=== PATIENT | female | born 2000 | race Two or more races ===

== ENCOUNTER 2024-03-11 17:28 | Observation (INO) | payer MEDICAID, SELFPAY ==
[2024-03-11 17:37] VITALS: BMI 33.9
[2024-03-11 17:51] VITALS: BP 109/50; PULSE 80
--- NOTE | 2024-03-11 21:46 | XR_ITS ---
Examination: Biophysical profile, ultrasound Date and time of exam: March 11, 2024 2156 hrs. Indications: Pelvic pain and pressure today, history demise x2 Technique: Multiple transabdominal sonographic images of the pelvis abdomen obtained. Attention is directed to the breathing movement, gross body movement, amniotic fluid volume and tone. Findings: Adequate fluid index 8.9 cm Total biophysical profile is 8 of 8. breathing movement is 2. Gross body movement is 2. tone is 2. Qualitative amniotic fluid volume is 2 Impression: Biophysical profile is 8 of 8.
== END 2024-03-11 23:10 | disposition home or self-care (01) ==
PROVIDERS: Admitting Provider Student in an Organized Health Care Education/Training Program; PCP Family Medicine; Visit Provider Student in an Organized Health Care Education/Training Program
DX: O26.893 Other specified pregnancy related conditions, third trimester (principal); Z3A.39 39 weeks gestation of pregnancy; R10.30 Lower abdominal pain, unspecified
CPT/HCPCS: 59025; 59899; 76819

== ENCOUNTER 2024-03-14 19:10 | Inpatient (IN) | payer MEDICAID, SELFPAY ==
--- NOTE | 2024-03-14 18:26 | PC.NURSE ---
CALL PLACED TO [facility] FOR PANEL, PER [facility] THEY DO NOT HAVE A PANEL BUT WILL FAX WHAT LABS THEY DO HAVE FOR THE PT.
--- NOTE | 2024-03-14 19:35 | ESHP_ITS ---
Documentation for date of: 03/14/24 OB Labor/Induct. HPI History of Present Illness Chief complaint: IOL : 5 Para: 3 Term pregnancies: 1 pregnancies: 3 Living children: 2 History of Abortions: Spontaneous and Elective: 0 ALEYDA: 03/16/24 Gestational Age (weeks): 39 Gestational Age (days): 5 Indication for induction: other History of present illness: 23-year-old -1-0-3 at 39 weeks 5 days, ALEYDA 03/16/2024 presents for elective induction of labor due to maternal discomfort. Patient received care at [facility]. Current significant for late transfer of care in the late second trimester from [place]. Patient has been having occasional contractions and as per her last exam she was noted to be 3 cm dilated in the office. Patient has a history of adverse outcomes with 3 deliveries at 36 weeks and 2 deaths within hours to days after all of which was in [place]. Review of Systems Review of Systems Systems Reviewed: All systems reviewed, normal except as documented Meds Home Medications and Allergies Home Medications ?Medication ?Instructions ?Recorded ?Confirmed ?Type vit no.95-ferrous 1 tab PO QDAY 03/11/24 03/11/24 History fumarate 28 mg-folic acid 800 mcg tablet () Allergies Allergy/AdvReac Type Severity Reaction Status Date / Time No Known Allergies Allergy Verified 03/11/24 17:46 OB Exam Constitutional Constitutional: no acute distress Routine HEENT Exam Head: Present normocephalic and atraumatic Eye: Present EOMI and PERRL ENT: Present mucous membranes moist Routine Neck Exam Neck: Present supple and trachea midline Routine Cardiovascular Exam Cardiovascular: Present RRR Routine Abdominal Exam Abdominal: Present soft and normoactive bowel sounds Detailed Labor and Delivery Exam Dilation (cm): 3 Effacement (%): 100 Cervix position: mid Baseline heart rate: 140 monitor accelerations: 15x15 monitor decelerations: None Routine Extremities Exam Extremities: Present full ROM Routine Skin Exam Skin: Present intact, dry and warm Routine Neurological Exam Neurological: Present alert, oriented X3 and CN II-XII intact Routine Psychiatric Exam Psychiatric: Present normal affect and normal thought process OB Assessment & Plan Assessment and Plan (1) Encounter for induction of labor: Status: Acute Assessment and plan: Admit to Inpatient to labor and Delivery GBS: neg Vital Signs per protocol External monitor/Tocometry Activity: Bedrest w/bathroom privileges Ambulate in Latent Labor with intact membrane Intake and Urine Output Monitoring Urine catheter as needed Diet: As tolerated in latent labor Ice Chips in active labor Intravenous Fluids: Lactated Ringers +/- 5% Dextrose at 125 cc/hour Labs Complete Blood Count Blood Type and Antibody Screen (Indirect Jaden) RPR COVID-19 RNA Plan: Misoprostol for cervical ripening until favorable, proceed to oxytocin once ripening is achieved Estimated weight 7-1/2 pounds Anticipate vaginal delivery. Pain management as per protocol, epidural if desired. (2) with poor obstetric history: Status: Acute
[2024-03-14 20:30] VITALS: TEMP 36.8
[2024-03-14 20:58] LABS: Basophils # (Auto) 0.1 Thou/mm3 (0.0-0.2); Basophils % (Auto) 1 % (0-2.5); Eosinophils # (Auto) 0.3 Thou/mm3 (0.0-0.5); Eosinophils % (Auto) 2 % (0-10); Hematocrit 35.8 % (36.0-46.0); Hemoglobin 11.8 g/dL (12.0-16.0); Immature Granulocytes % (Auto) 0 % (0-0); Immature Granulocytes Auto 0.05 Thou/mm3 (0.00-0.00); Lymphocytes # (Auto) 2.6 Thou/mm3 (1.0-4.8); Lymphocytes % (Auto) 23 % (10-50); Mean Corpuscular Hemoglobin 24.7 pg (25.0-35.0); Mean Corpuscular Volume 75 fL (80-100); Monocytes # (Auto) 0.9 Thou/mm3 (0.0-0.8); Monocytes % (Auto) 8 % (0-12); Neutrophils # (Auto) 7.8 Thou/mm3 (1.8-7.7); Neutrophils % (Auto) 67 % (37-80); Nucleated Red Blood Cell % 0 /100 WBC (0); Platelet Count 327 Thou/mm3 (140-440); RDW Standard Deviation 45.5 fL (36.4-46.3); Red Blood Count 4.77 Miln/mm3 (4.00-5.20); White Blood Count 11.7 Thou/mm3 (3.6-11.0)
[2024-03-14 21:00] VITALS: BP 101/60; PULSE 77; BMI 34.5
[2024-03-14 21:06] LABS: Amphetamine/Metham Scrn,Ur OB Negative (Negative); Benzoylecgonine Screen, Ur OB Negative (Negative); Opiate Screen,Urine OB Negative (Negative); THC Screen,Urine OB Negative (Negative)
[2024-03-14 21:25] VITALS: BP 100/60; PULSE 78
[2024-03-14 22:56] VITALS: BP 95/50; PULSE 71
[2024-03-14 23:24] VITALS: BP 100/57; PULSE 67
[2024-03-14 23:54] VITALS: BP 97/61; PULSE 69
[2024-03-15] VITALS (110 sets, daily range): BP systolic 59–127; BP diastolic 43–75; PULSE 61–117; RESP 16–20; TEMP 36.6–37; O2SAT 87–100
[2024-03-15 02:35] LABS: Syphilis Nonreactive (Nonreactive)
[2024-03-15] MEDS: RINGERS LACTATED 1000 ML 1,000 ML 100 ML IV (03:48)
[2024-03-15] MEDS: OXYTOCIN in NS 30 units 30 UNIT/500 ML BAG IV (03:49)
--- NOTE | 2024-03-15 06:50 | PD.LDPN ---
Documentation for date of: 03/15/24 OB Labor Progress Note Pain Control Pain control: tolerating well Pelvic Exam Dilation (cm): 5 Effacement (%): 70 station: -1 Amniotic membrane status: Ruptured (clear) Contractions Monitor mode: External Contraction frequency: 3-4 Contraction duration: 40 Contraction phase: Resting Contraction intensity: Moderate Status status: Category l Assessment and Plan Pitocin rate (mU/min): 4 Assessment: induction ongoing CNM Management MD Consulted (describe details below): Yes
[2024-03-15] MEDS: fentaNYL CIT INJ 50 mCg/ML AMP 2ML 100 MCG IM (07:21)
--- NOTE | 2024-03-15 10:24 | ESPR_ITS ---
Documentation for date of: 03/15/24 OB Labor Progress Note Pain Control Comments: Patient was seen at the bedside. Earlier I was called at 8 AM that the patient was having recurrent variables with every contraction Pitocin was stopped and orders for amnioinfusion was given. However patient refused to get any vaginal exam until anesthesia was provided. After epidural anesthesia cervical examination revealed the patient is 6 cm dilated 80% effaced and head station - 1. Caput present. Catheter placed earlier is blood-tinged suggesting signs of cephalopelvic disproportion. As of current examination patient is not changed in her cervical status for 4 hours in spite of being on Pitocin and ruptured Category 2 heart tones Patient has a history of 2 deaths and is very anxious about this delivery At this point primary low-transverse was called for failure to progress and category 2 heart tone Risk of including hemorrhage, infection, injury to neighboring organs including bladder was discussed with the patient with wardrobe supervisor online Boarded for primary low-transverse Pelvic Exam Dilation (cm): 6 Effacement (%): 70 station: -1 Amniotic membrane status: Ruptured (clear) Contractions Monitor mode: External Contraction frequency: 3-4 Contraction phase: Resting Contraction intensity: Moderate Status status: Category ll
[2024-03-15] MEDS: ceFAZolin/D5W 2 GM IV 2 GM/100 ML BAG IV (10:45)
[2024-03-15] MEDS: FAMOTIDINE INJ 10 MG/ML VIAL 2 ML 20 MG IV (10:45)
[2024-03-15] MEDS: CITRIC ACID/SODIUM CITR 15 ML UDC (BICITRA) 30 ML PO (10:45)
[2024-03-15] MEDS: OXYTOCIN in NS 20 units 20 UNIT/1,000 ML BAG 125 UNIT IV (11:50)
[2024-03-15 16:51] LABS: Basophils % (Auto) 0 % (0-2.5); Eosinophils % (Auto) 0 % (0-10); Hematocrit 35.7 % (36.0-46.0); Hemoglobin 11.9 g/dL (12.0-16.0); Immature Granulocytes % (Auto) 0 % (0-0); Immature Granulocytes Auto 0.06 Thou/mm3 (0.00-0.00); Lymphocytes # (Auto) 1.5 Thou/mm3 (1.0-4.8); Lymphocytes % (Auto) 9 % (10-50); Mean Corpuscular HGB Conc 33.3 g/dl (31.0-37.0); Mean Corpuscular Hemoglobin 24.8 pg (25.0-35.0); Mean Corpuscular Volume 75 fL (80-100); Monocytes # (Auto) 0.4 Thou/mm3 (0.0-0.8); Monocytes % (Auto) 3 % (0-12); Neutrophils # (Auto) 15.2 Thou/mm3 (1.8-7.7); Neutrophils % (Auto) 88 % (37-80); Nucleated Red Blood Cell % 0 /100 WBC (0); Platelet Count 306 Thou/mm3 (140-440); RDW Standard Deviation 45.1 fL (36.4-46.3); Red Blood Count 4.79 Miln/mm3 (4.00-5.20); White Blood Count 17.2 Thou/mm3 (3.6-11.0)
[2024-03-15] MEDS: IBUPROFEN TAB 400 MG TABLET 800 MG PO (23:54)
[2024-03-16 04:00] VITALS: BP 90/51; PULSE 72; RESP 16; TEMP 36.4; O2SAT 98
[2024-03-16] MEDS: HYDROcodone/APAP 5/325 TABLET 1 TAB PO ×3 (07:11→20:09)
[2024-03-16 08:15] VITALS: BP 97/57; PULSE 78; RESP 18; TEMP 36.6; O2SAT 99
[2024-03-16] MEDS: IBUPROFEN TAB 400 MG TABLET 800 MG PO ×2 (10:21→23:41)
--- NOTE | 2024-03-16 10:52 | OBDSUM_ITS ---
Data (Yoo) Data : 5 Para: 4 Term: 4 : 0 : 0 Delivery Data (Yoo) Labor Data Stimulated/Augmented: Yes Method: Oxytocin ROM Date: 03/15/24 ROM Time: 06:05 Rupture Type: AROM Amniotic Fluid: Clear Delivery Data Labor Onset Stage 1 Date: 03/14/24 Labor Onset Stage 1 Time: 23:43 Labor Onset Stage 2 Date: 03/15/24 Labor Onset Stage 2 Time: 11:11 Delivery Date: 03/15/24 Delivery Time: 11:11 Gestational age (weeks): 39 Gestational age (days): 6 Placenta Delivery Date: 03/15/24 Placenta Delivery Time: 11:12 Delivered by: Emerald Elaine Delivery nurse: Agnes Dimas Other staff at delivery: Nursery Nurse Other staff at delivery: Nurse Other staff at delivery: Laurie Mcintosh Other staff at delivery: Leslie Ma Delivery Method Delivery: Delivery Type: Primary Presentation: Vertex Anesthesia Type Primary Anesthesia: Epidural EBL Estimated blood loss (ml): 400 Umbilical Cord Umbilical Vessels: 3 Nuchal Cord: None Body Cord: None Winslow Data (Yoo) Winslow Data Gender: Male Identification Band Number: [id number] Weight Grams: 3440 1 Minute Total: 7 5 Minute Total: 9
[2024-03-16 12:00] VITALS: BP 98/58; PULSE 77; RESP 18; TEMP 36.7; O2SAT 98
--- NOTE | 2024-03-16 12:26 | PC.NURSE ---
Holly in social work supervisor made aware of pending consult
--- NOTE | 2024-03-16 13:24 | PC.CC ---
WARE DRESSER, Dinora, met with patient [id number] to do initial assessment due to scoring high on the Post- Depression Scale. WARE DRESSER introduced herself, role in the agency, reason for visit, and discussed limits of confidentiality. Patient appeared alert and oriented to self, time, place, and situation. Patient appears stated age. Patient made good eye contact. Patient?s attitude appeared pleasant and cooperative. Patient?s behavior and mood appears ordinary. No signs of delusions or hallucinations. This 23-year-old, , female presented to the hospital to deliver her son, Neal Pacheco. Patient reported that she resides at home with her significant other/Father of the Baby Oneal Izquierdo who is involved. Per patient, he is the sole provider for the family. She reports her family is part of her support system. She reports being independent with all her ADLs, no DME use. Patient reported that she receives WIC, but denied receiving SNAP and CashAid. Patient denies any history or current domestic violence or child welfare services involvement. Patient reports that prior to giving she was feeling sad because she was missing her mother and 6 year-old daughter she left behind in [place]. The patient reported she has a 2-year-old at home. In addition, the patient shared she had two other infants that in [place] one was 15 days old and the other was 3 days old. The patient reported she is no longer feeling sad or with depressive symptoms. The patient denied past mental health history and reported she is not connected to mental health. SW provided psychoeducation regarding baby blues and Post- Depression, as well as counseling groups at [facility]. SW provided community resources: Warm Line and Crisis Line. Patient reports she has all needed supplies for the baby upon discharge. Patient reports she will be .
--- NOTE | 2024-03-16 16:31 | ESOP_ITS ---
Operative Note - MECHANIC CHIEF Procedure Date of procedure: 03/15/24 Procedure Performed: primary low transverse c section Indication: failure to progress signs of obstruction , caput , blood stained urine in mcmillan 4 hours in active phase with no cervical change after rupture of membranes and pitocin category 2 FHT Pre-Op diagnosis: same Post-Op diagnosis: same Anesthesia type: Spinal Procedure description: informed consent was obtained and the patient was taken to the operating room.? Identity was confirmed by double identifiers and she was placed on the operating table.The abdomen and perineum were prepped in the usual sterile fashion and a Mcmillan catheter was placed to continuous drainage.? Sterile drapes were applied.??A Pfannenstiel skin incision was made with a scalpel and carried to the subcutaneous fat up to the rectus fascia.? The rectus fascia was incised on either side of the midline and the incisions were extended bilaterally.? The fascia was gently dissected off the ventral surface of the rectus muscle both superiorly and inferiorly. Carefully a peritioneal window created and after ruling out adhesion of bowel and bladder it was extended . The baby was cephalic position was delivered via vertex. The umbilical cord , was doubly clamped, divided and the infant was handed over to the waiting team.cord blood and segment obtained. ? placenta delivered by controlled cord traction . The interior of the uterus was now thorougly cleaned of all blood and debris and membranes.? The? hysterotomy was closed using 0 vicryl suture in double layers. Once the repair was completed the hysterotomy was inspected, was noted to be adequately hemostatic . Muscle oozing stopped by bovie. The rectus fascia was repaired using Vicry 0 in a running fashion.? The subcutaneous layer was now, approximated with 3-0 vicryl in double layers.? All bleeding points were cauterized using the Bovie.?The skin was closed using 4-0 Monocryl in a subcuticular fashion.? The skin was cleaned and a sterile dressing was applied. The patient was now undraped, the abdomen and back were thoroughly cleaned and she was now transferred to the recovery room in a stable Estimated blood loss (ml): 300 Surgical staff Operation Date: 03/15/24 10:53 Case Staff HOLISTIC NUTRITIONIST: Brooks Zavala Jr, RN First Assistant: Regan Soto Diagnosis Problem List Completed Was Problem List Reviewed/Reconciled?: Yes
--- NOTE | 2024-03-16 16:35 | PD.LDPPPRG ---
Subjective Subjective Interval history: Patient is doing well, feeding her baby at bedside. Denies any fever , nausea, vomitting. Exam Vital Signs Temp Pulse Resp BP Pulse Ox O2 Del Method 98.1 F 77 18 98/58 L 98 Room Air 03/16/24 12:00 03/16/24 12:00 03/16/24 12:00 03/16/24 12:00 03/16/24 12:00 03/16/24 12:00 Constitutional Constitutional: no acute distress Routine HEENT Exam Head: Present normocephalic and atraumatic Eye: Present EOMI and PERRL ENT: Present mucous membranes moist Routine Neck Exam Neck: Present supple and trachea midline Routine Respiratory Exam Respiratory: Present chest non-tender, lungs clear, normal breath sounds and no resp distress Routine Cardiovascular Exam Cardiovascular: Present RRR Routine Abdominal Exam Abdominal: Present soft and normoactive bowel sounds Routine Extremities Exam Extremities: Present full ROM Routine Skin Exam Skin: Present intact, dry and warm Routine Neurological Exam Neurological: Present alert, oriented X3 and CN II-XII intact Routine Psychiatric Exam Psychiatric: Present normal affect and normal thought process Objective Labs 03/15/24 16:40 Labs: Laboratory Results - last 24 hr 03/15/24 16:40 WBC 17.2 H D RBC 4.79 Hgb 11.9 L Hct 35.7 L MCV 75 L MCH 24.8 L MCHC 33.3 RDW Std Deviation 45.1 Plt Count 306 Neut % (Auto) 88 H Lymph % (Auto) 9 L [place] % (Auto) 3 Eos % (Auto) 0 Baso % (Auto) 0 Neut # (Auto) 15.2 H Lymph # (Auto) 1.5 [place] # (Auto) 0.4 Eos # (Auto) 0.0 Baso # (Auto) 0.0 Immature Gran # (Auto) 0.06 H Absolute Nucleated RBC 0.00 Immature Gran % 0 Nucleated RBC % 0 Assessment & Plan Problem List (1) Encounter for induction of labor: Status: Acute (2) with poor obstetric history: Status: Acute Assessment Comment Assessment comment: 23 y/o p1, s/p PLTCS for failure to progress, POD#1 VSS Hb drip appropriate to blood loss meeting all PO milestones Plan Comment Plan Comment: continue PO care antricipate discharge tomorrow Time Spent With Patient Time: Total time spent is greater than 50% in coordination of care (as documented) at patient's floor/unit and/or counseling patient:
[2024-03-16 20:00] VITALS: BP 107/80; PULSE 82; RESP 16; TEMP 37.1; O2SAT 98
[2024-03-17 04:05] VITALS: BP 96/59; PULSE 97; RESP 18; TEMP 36.4; O2SAT 98
[2024-03-17 08:55] VITALS: BP 98/66; PULSE 105; RESP 18; TEMP 36.7; O2SAT 97
--- NOTE | 2024-03-17 09:01 | PD.LDPPPRG ---
Subjective Subjective Interval history: Delivery type: Patient doing well this morning. No acute complaints. Ambulating, tolerating p.o. and voiding without difficulty. HTN/Pre-Eclampsia screen: No chest pain, shortness of breath, headache, visual changes, epigastric or right upper quadrant pain. Breast-feeding, lochia diminishing. Bowel: Flatus+/ BM+ Exam Vital Signs Temp Pulse Resp BP Pulse Ox O2 Del Method 97.6 F 97 18 96/59 L 98 Room Air 03/17/24 04:05 03/17/24 04:05 03/17/24 04:05 03/17/24 04:05 03/17/24 04:05 03/17/24 04:05 Constitutional Constitutional: no acute distress Routine HEENT Exam Head: Present normocephalic and atraumatic Eye: Present EOMI and PERRL ENT: Present mucous membranes moist Routine Neck Exam Neck: Present supple and trachea midline Routine Respiratory Exam Respiratory: Present chest non-tender, lungs clear, normal breath sounds and no resp distress Routine Cardiovascular Exam Cardiovascular: Present RRR Routine Abdominal Exam Abdominal: Present soft and normoactive bowel sounds Routine Extremities Exam Extremities: Present full ROM Routine Skin Exam Skin: Present intact, dry and warm Routine Neurological Exam Neurological: Present alert, oriented X3 and CN II-XII intact Routine Psychiatric Exam Psychiatric: Present normal affect and normal thought process Objective Labs 03/15/24 16:40 Assessment & Plan Problem List (1) Encounter for induction of labor: Status: Acute (2) with poor obstetric history: Status: Acute (3) delivery delivered: Status: Acute Assessment and plan: PPD/POD#2 1. Continue routine care 2. Transition to PO meds. 3. Encourage to ambulate/ breast-feed 4. Anticipate discharge home today. Time Spent With Patient Time: Total time spent is greater than 50% in coordination of care (as documented) at patient's floor/unit and/or counseling patient:
--- NOTE | 2024-03-17 09:02 | ESDS_ITS ---
DS: Providers Provider Date of admission: 03/14/24 19:10 Primary care physician: Physician No Primary/Family Admitting Provider: Cristobal Beck MD Attending Provider on Admission: Emerald Elaine MD Consults: 03/15/24 10:41 Referral Routine Comment: Attending Provider on DC: Cristobal Beck MD Discharging Provider: Cristobal Beck MD DS: Diagnosis Discharge Diagnosis (1) delivery delivered: Status: Acute (2) with poor obstetric history: Status: Acute Problem List Completed Was Problem List Reviewed/Reconciled?: Yes Summary/Hosp Course Brief History: 23-year-old -1-0-3 at 39 weeks 5 days, ALEYDA 03/16/2024 presents for elective induction of labor due to maternal discomfort. Patient received care at [facility]. Current significant for late transfer of care in the late second trimester from [place]. Patient has been having occasional contractions and as per her last exam she was noted to be 3 cm dilated in the office. Patient has a history of adverse outcomes with 3 deliveries at 36 weeks and 2 deaths within hours to days after all of which was in [place]. Peripartum Data Procedures: Procedures Operation Date: 03/15/24 10:53 Actual Procedure Side Surgeon p in OB Emerald Elaine MD Time Spent with Patient Time attestation: Total time spent providing and/or coordinating discharge services: Exam Vital Signs Temp Pulse Resp BP Pulse Ox O2 Del Method 97.6 F 97 18 96/59 L 98 Room Air 03/17/24 04:05 03/17/24 04:05 03/17/24 04:05 03/17/24 04:05 03/17/24 04:05 03/17/24 04:05 Discharge Plan Plan Patient Disposition: HOME (Self Care) Patient condition on transfer: Stable Prescriptions/Referrals Prescriptions/Med Rec: New hydrocodone-acetaminophen 5-325 mg Tablet 1 tab PO Q6H MDD 4 PRN (Reason: Patient rated pain 7 to 8) 5 Days Qty: 20 0RF ibuprofen 400 mg Tablet 800 mg PO Q8H PRN (Reason: See Comments) 10 Days Qty: 30 0RF docusate sodium [Stool Softener] 100 mg capsule 100 mg PO QDAY 30 Days Qty: 30 0RF Continued PNV cmb#95-ferrous fumarate-FA [] 28 mg iron- 800 mcg Tablet 1 tab PO QDAY Referrals: Cristobal Beck MD [Physician] - No Primary/Family,Physician [Primary Care Provider] - Patient/Caregiver Discharge Instructions Meds to Beds: Yes Discharge Activity: activity as tolerated Education Materials: After a , C Section Dc Print Language: Citizen Of [place] Stand Alone Forms: [place] Award Info., Patient Portal Info Letter, DC from Surgery Discharge Order Discharge Orders: Discharge (Routine); Ordered 03/17/24 Ordered By: Cristobal Beck Planned Discharge Date 03/17/24
[2024-03-17] MEDS: HYDROcodone/APAP 5/325 TABLET 1 TAB PO (09:08)
[2024-03-17 12:15] VITALS: BP 99/63; PULSE 94; RESP 16; TEMP 36.9
[2024-03-17] MEDS: IBUPROFEN TAB 400 MG TABLET 800 MG PO (15:01)
== END 2024-03-17 16:10 | disposition home or self-care (01) | DRG 540 ==
LOC: S4SX 03-15 11:33 → S4NX 03-15 12:01
PROVIDERS: Admitting Provider Obstetrics & Gynecology; Visit Provider Student in an Organized Health Care Education/Training Program
PROC: 10D00Z1 Extraction of Products of Conception, Low, Open Approach (ICD-10-PCS; CPT 59514; principal; 2024-03-15 10:50)
DX: O62.2 Other uterine inertia (principal); Z37.0 Single live birth; Z3A.39 39 weeks gestation of pregnancy
CPT/HCPCS: 36415; 59409; 80307; 85025; 86780; 86850; 86900; 86901; 94762; A4649; J0689; J1100; J1885; J2274; J2405; J2590; J2765; J3010; J3490; J7120; A9270; J0690; J2270

== ENCOUNTER 2024-09-11 21:15 | Emergency (ER) | payer MEDICAID, SELFPAY ==
[2024-09-11 21:17] VITALS: BMI 36.3
[2024-09-11 21:31] VITALS: BP 113/78; PULSE 132; RESP 18; TEMP 37.5; O2SAT 97
--- NOTE | 2024-09-11 23:03 | PD.EDEXREM ---
ED Extremity Problem RME/HPI General Chief complaint: Extremity Injury, Lower Stated complaint: bilat knee pain Time Seen by Provider: 09/11/24 22:56 Arrival date/time: 09/11/24 21:15 23F with history of DM and NALFD presents to ED with 2 days of fevers/chills, cough, joint pain (primarily in LE; L>R), as well as back/body aches. There is also some N/V, but patient denies ab pain and dysuria. Limitations: no limitations Related Data Home Medications ?Medication ?Instructions ?Recorded ?Confirmed vit no.95-ferrous 1 tab PO QDAY 03/11/24 03/11/24 fumarate 28 mg-folic acid 800 mcg tablet () Allergies Allergy/AdvReac Type Severity Reaction Status Date / Time No Known Allergies Allergy Verified 09/11/24 21:24 Review of Systems Review of Systems Systems Reviewed: All systems reviewed, normal except as documented Constitutional Constitutional: Reports system reviewed and no additional complaints, except as documented, Reports as per HPI, Reports body ache(s), Reports chills, Reports fever(s) and Denies headache(s) ENT Ears, Nose, Mouth, and Throat: Denies disequilibrium and Denies headache(s) Cardiovascular Cardiovascular: Reports system reviewed and no additional complaints, except as documented, Denies chest pain and Denies dyspnea Respiratory Respiratory: Reports system reviewed and no additional complaints, except as documented, Denies cough and Denies dyspnea Gastrointestinal Gastrointestinal: Reports system reviewed and no additional complaints, except as documented, Reports as per HPI, Denies abdominal pain, Reports nausea and Reports vomiting Musculoskeletal Musculoskeletal: Reports as per HPI, Reports arthralgias and Reports back pain Neurologic Neurologic: Reports system reviewed and no additional complaints, except as documented, Denies confusion, Denies disequilibrium and Denies headache(s) Psychiatric Psychiatric: Denies confusion Past Medical History Past Medical History NEUROLOGIC: Negative Neurological Disorders CARDIAC: Negative Cardiac Disorders, Myocardial Infarction, Cardiac Arrhythmia, Atrial Fibrillation, Angina, Heart Murmur, Coronary Artery Disease, Atherosclerotic Heart Disease, Peripheral Vascular Disease, Hypercholesterolemia, Aneurysm, Congestive Heart Failure, Congenital Heart Disease, Valvular Heart Disease, Rheumatic Fever, Cardiomyopathy, Edema, Pericarditis, Cellulitis, Deep Vein Thrombosis, Hypertension, Hypotension or Varicose Veins RESPIRATORY: Negative Chronic Obstructive Pulmonary Disease (COPD) GASTROINTESTINAL: Negative Gastrointestinal Disorders GENITOURINARY: Negative Genitourinary Disorders, Renal Disease, Kidney Stones, Polycystic Kidney Disease, Neurogenic Bladder, Inguinal Hernia, Dialysis or Benign Prostatic Hyperplasia REPRODUCTIVE: Negative Endometriosis, Genital Herpes, Gonorrhea, Pelvic Inflammatory Disease, Previous Pregnancies, Syphilis or Uterine Prolapse MUSCULOSKELETAL: Negative Musculoskeletal Disorders, Muscular Dystrophy, Myasthenia Gravis, Marfan's Syndrome, Arthritis, Rheumatoid Arthritis, Osteoporosis, Degenerative Disk Disease, Gout, Scoliosis, Fibromyalgia, Fractures, Degenerative Joint Disease, Osteomyelitis or Poliovirus ENT: Negative Cataracts, Glaucoma, Blind, Retinal Detachment, Macular Degeneration, Ear Infection, Deafness or Eye Prosthesis ENDOCRINE: Negative Endocrine Disorders, Diabetes Mellitus Type 1, Diabetes Mellitus Type 2, Hypoglycemia, Lyndsey's Syndrome, Menard's Disease, Hyperthyroidism, Hypothyroidism, Parathyroid Disease, Pituitary Disease, Systemic Lupus Erythematosus, Syndrome of Inappropriate Antidiuretic Hormone (SIADH), Adrenal Disease or Graves' Disease HEMATOLOGIC: Negative Blood Disorders, Anemia, Leukemia, Hemophilia, Thalassemia, Sickle Cell Disease or Clotting Problems OTHER HISTORY: Negative Autoimmune Disease Family History FAMILY HISTORY: Negative Family Cardiac Disorders Surgical History SURGICAL: Negative Cardiac Surgery, Pacemaker, Endocrine Surgery, Thyroidectomy or Ear Surgery Social History SMOKING STATUS: Never smoker SECOND HAND EXPOSURE: Yes ED Exam General Limitations: Present no limitations General appearance: Present alert and in no apparent distress Head Head exam: Present atraumatic Eye Eye exam: Present normal appearance, PERRL and EOMI ENT ENT exam: Present normal exam, normal oropharynx and mucous membranes moist Neck Neck exam: Present normal inspection, full ROM and trachea midline Chest Chest inspection: Present normal inspection and symmetric chest wall rise Respiratory Respiratory exam: Present normal lung sounds bilaterally Cardiovascular Cardiovascular exam: Present regular rate, normal rhythm and normal heart sounds Abdominal Exam Abdominal exam: Present soft and normal bowel sounds Extremities Exam Extremities exam: Present normal inspection and full ROM Back Exam Back exam: Present normal inspection and full ROM Neurological Exam Neurological exam: Present alert, oriented X3 and CN II-XII intact Psychiatric Psychiatric exam: Present normal affect and normal mood Skin Skin exam: Present warm, dry, intact and normal color Course Quality Measures none Orders Category Date Time Status Bedside Influenza A&B Antigen Test NOW Care 09/11/24 22:59 Active US venous doppler LE LT Stat Exams 09/12/24 00:36 Taken Beta Hydroxybutyrate Stat Lab 09/11/24 23:22 Completed CBC Stat Lab 09/11/24 23:22 Completed CMP [Comprehensive Metabolic Panel] Stat Lab 09/11/24 23:22 Completed Drug Screen,Urine Stat Lab 09/11/24 23:07 Completed HCG Qualitative,Urine Stat Lab 09/11/24 23:07 Completed Lactate (Lactic Acid) Stat Lab 09/11/24 22:59 Completed Procalcitonin Stat Lab 09/11/24 23:22 Completed Urinalysis, C/S if Indicated Stat Lab 09/11/24 23:07 Completed VBG [Venous Blood Gas] Stat Lab 09/11/24 23:05 Completed Naproxen [Naprosyn] Med 09/11/24 22:58 Discontinued 500 mg PO X1 ONE Ondansetron Odt [Zofran Odt] Med 09/11/24 23:00 Discontinued 4 mg PO X1 ONE Vital Signs Vital signs: Vital Signs Temperature 99.5 F 09/11/24 21:31 Pulse Rate 132 H 09/11/24 21:31 Respiratory Rate 18 09/11/24 21:31 Blood Pressure 113/78 09/11/24 21:31 Pulse Oximetry (%) 97 09/11/24 21:31 Oxygen Delivery Method Room Air 09/11/24 21:31 O2 at 97% on RA and WNLs Extremity Problem MDM Narrative MDM Narrative:: 23F with history of DM and NALFD presents to ED with 2 days of fevers/chills, cough, joint pain (primarily in LE; L>R), as well as back/body aches. There is also some N/V, but patient denies ab pain and dysuria. Physical exam with coding compliance manager reveals gross BLE. Normal WOB, Patient is mildly febrile, but does not appear toxic. US no DVT. Procal/lactate normal. UA clean. Minimal leukocytosis. CMP unremarkable. VBG and Beta normal. Swabs neg. Likely viral URI. Symptoms improved with Naproxen. Patient data External records reviewed:: [facility] previous records Clinical information provided by:: patient Social determinants that could affect healthcare access:: none Patient has the following chronic illnesses:: DM How is presenting disease/condition affected by chronic disease/condition?: exacerbated by Evaluation data The following diagnostics were reviewed and interpreted by me:: lab results and radiology exam(s) Lab and/or radiology exams considered but not ordered:: ordered Interpretation Summary: above Medications / Prescriptions Medications or Prescriptions considered but not ordered:: ordered Medication administrations:: Medication Administration History Discontinued Medications Naproxen (Naproxen 250 Mg Tablet) 500 mg PO X1 ONE Stop: 09/11/24 22:59 Last Admin: 09/11/24 23:31 Dose: 500 mg Documented By: CALLI Ondansetron HCl (Ondansetron Odt 4 Mg Tabrap) 4 mg PO X1 ONE; Protocol Stop: 09/11/24 23:01 Last Admin: 09/11/24 23:31 Dose: 4 mg Documented By: CALLI above Consultations Consultation(s) initiated? (list below): No Diagnosis Extremity Problem Differential Diagnosis: herpes zoster, gout, cellulitis, superficial thrombophlebitis, deep venous thrombosis of upper extremity, lower extremity edema, deep vein thrombosis of lower extremity and other (URI, DKA) Most likely diagnosis given after review of the tests above:: URI Admission Indicated Admission indicated?: not indicated Admission Request Was there a request for admission?: No Disposition Plan Disposition Plan: Discharge Discharge Attestation Discharge Attestation: The patient and all family members were given an opportunity to ask questions and understood the discharge instructions. Discharge instructions specifically effects, indications for sooner follow up or return to the emergency department, and the expected course of current diagnosis. Patient condition: Stable Discharge Plan Plan Patient Disposition: HOME (Self Care) Discharge Disposition comment: Stable Prescriptions/Referrals Prescriptions/Med Rec: No Action PNV cmb#95-ferrous fumarate-FA [] 28 mg iron- 800 mcg Tablet 1 tab PO QDAY Referrals: No Primary/Family,Physician [Primary Care Provider] - In 1 week Problem List Clinical Impression: URI (upper respiratory infection) Patient/Caregiver Discharge Instructions Education Materials: ED URI, Viral, No Abx (Adult) Additional Instructions: Please follow-up with PCP within 24-48 hours and return immediately if symptoms worsen. Ibuprofen/Tylenol can be used simultaneously for greater fever/pain control. Benadryl is good for cough, congestion, and sleep. Print Language: Albanian Stand Alone Forms: Patient Portal Info Letter PA/THEATRE PROFESSOR Supervising Physician PA/THEATRE PROFESSOR Supervising Physician: Dr. Varghese
[2024-09-11 23:16] LABS: Collection Type, Urine Clean Catch
[2024-09-11 23:22] LABS: HCG Qualitative,Urine Negative
[2024-09-11 23:24] LABS: Bilirubin,Urine Negative (Negative); Blood,Urine Trace (Negative); Clarity,Urine Clear (Clear/Hazy); Color,Urine Lt-Yellow (Lt Yel-Yel); Culture Indicated,Urine Not Indicated; Glucose, Urine Negative (Negative); Ketones,Urine Negative (Negative); Leukocyte Esterase,Urine Negative (Negative); Nitrite,Urine Negative (Negative); Protein,Urine Trace (Neg - Trace); RBC,Urine 3 /hpf (0-3); Specific Gravity,Urine 1.028 (1.001-1.035); Squamous Epithelial Cell,Urine 15 /hpf (0-5); Urobilinogen,Urine Negative mg/dL (0.0-1.0); WBC,Urine 1 /hpf (0-5)
[2024-09-11 23:27] LABS: Amphetamine/Methamp Scrn,U Negative (Negative); Barbiturate Screen,Urine Negative (Negative); Benzodiazepines Screen,Urine Negative (Negative); Benzoylecgonine Screen, Ur Negative (Negative); Fentanyl Screen,Urine Negative (Negative); Opiate Screen,Urine Negative (Negative); THC Screen,Urine Negative (Negative)
[2024-09-11] MEDS: ONDANSETRON ODT 4 MG TABRAP PO (23:31)
[2024-09-11] MEDS: NAPROXEN 250 MG TABLET 500 MG PO (23:31)
[2024-09-11 23:32] LABS: Lactate (Lactic Acid) 0.7 mMol/L (0.4-2.0)
[2024-09-11 23:33] LABS: Base Excess, Venous -2 (-3-3); O2 Saturation, Venous 68 % (96-97); PCO2, Venous 37 mmHg (36-56); PO2, Venous 34 mmHg (15-58)
[2024-09-11 23:38] LABS: Beta Hydroxybutyrate 0.1 mmol/L (<0.6)
[2024-09-11 23:54] LABS: Basophils # (Auto) 0.1 Thou/mm3 (0.0-0.2); Basophils % (Auto) 0 % (0-2.5); Eosinophils # (Auto) 0.2 Thou/mm3 (0.0-0.5); Eosinophils % (Auto) 2 % (0-10); Hematocrit 41.8 % (36.0-46.0); Hemoglobin 13.9 g/dL (12.0-16.0); Immature Granulocytes % (Auto) 0 % (0-0); Immature Granulocytes Auto 0.04 Thou/mm3 (0.00-0.00); Lymphocytes % (Auto) 24 % (10-50); Mean Corpuscular HGB Conc 33.3 g/dl (31.0-37.0); Mean Corpuscular Hemoglobin 26.2 pg (25.0-35.0); Mean Corpuscular Volume 79 fL (80-100); Monocytes % (Auto) 8 % (0-12); Neutrophils # (Auto) 8.3 Thou/mm3 (1.8-7.7); Neutrophils % (Auto) 66 % (37-80); Nucleated Red Blood Cell % 0 /100 WBC (0); Platelet Count 313 Thou/mm3 (140-440); RDW Standard Deviation 40.3 fL (36.4-46.3); Red Blood Count 5.31 Miln/mm3 (4.00-5.20); White Blood Count 12.7 Thou/mm3 (3.6-11.0)
[2024-09-12 00:06] LABS: Alanine Aminotransferase 84 U/L (10-49); Albumin, Serum 5.2 gm/dL (3.5-5.0); Albumin/Globulin Ratio 1.7 (1.2-2.2); Alkaline Phosphatase 171 U/L (46-116); Anion Gap 12 (7-16); Aspartate Amino Transferase 47 U/L (0-34); BUN/Creatinine Ratio 20 Ratio (12-20); Bilirubin,Total 0.4 mg/dL (0.3-1.2); Blood Urea Nitrogen 16 mg/dL (9-23); Calcium 9.6 mg/dL (8.3-10.6); Calcium (Corrected) 9.6 mg/dL (8.5-10.1); Carbon Dioxide 22.6 mMol/L (20.0-31.0); Chloride 104 mMol/L (98-107); Creatinine (Component) 0.8 mg/dL (0.6-1.3); Estimated Creatinine Clearance 105.4 mL/min (>60); Globulin 3.1 gm/dL (2.3-3.5); Glucose 88 mg/dL (74-106); Osmolality,Calculated 277 (275-295); Potassium 3.7 mMol/L (3.4-5.1); Procalcitonin 0.11 ng/ml (0.0-0.49); Sodium 139 mMol/L (136-145); Total Protein 8.3 gm/dL (5.7-8.2); eGFR > 60 See Note
--- NOTE | 2024-09-12 00:36 | XR_ITS ---
Examination: Duplex scan of the lower extremity, unilateral left complete Date and time of exam: September 12, 2024, 0036 hours INDICATIONS: Left leg and knee pain several days Technique: Duplex scan of the extremity veins using B-mode/grayscale imaging and Doppler spectral analysis and color flow Attention is directed to internal echogenicity, compression and augmentation involving these veins, color flow assessment, spectral analysis Findings: Major deep venous structures in the extremity demonstrate normal course and caliber. There is no evidence of deep vein thrombosis. Normal color flow and spectral analysis Impression: Negative for DVT..
--- NOTE | 2024-09-12 01:43 | PRELIM_ITS ---
Left lower extremity venous Doppler ultrasound. September 12, 2024 at 0036 hours Clinical history: R/o DVT. Technique: Duplex scan of the left lower extremity deep venous systems was performed utilizing 2D grayscale imaging, Doppler spectral analysis and color flow Doppler and with compression. Findings: Umaña scale, color flow and spectral Doppler evaluation of the left lower extremity deep veins was performed. The common femoral, superficial femoral and popliteal veins are patent and compressible. Normal respiratory variation and augmentation are noted. There is no evidence of occlusive or nonocclusive thrombus. The great saphenous vein is patent and compressible at the level of the saphenofemoral junction. The posterior tibial and peroneal veins are patent and compressible. Impression: No sonographic evidence of deep venous thrombosis in the left lower extremity. Report Electronically Signed By: Johan Alarcon 09/12/2024 1:42:23 AM [EST]
[2024-09-12 02:20] VITALS: BP 99/66; PULSE 94; RESP 19; TEMP 36.8; O2SAT 98
== END 2024-09-12 02:35 | disposition home or self-care (01) ==
PROVIDERS: Physician Assistant; Emergency Provider Emergency Medicine
DX: J06.9 Acute upper respiratory infection, unspecified (principal); E11.9 Type 2 diabetes mellitus without complications; M25.562 Pain in left knee; M25.561 Pain in right knee; R11.2 Nausea with vomiting, unspecified
CPT/HCPCS: 36415; 80053; 80307; 81001; 81025; 82010; 82803; 83605; 84145; 85025; 93971; 99284; Q0162; A9270

== ENCOUNTER 2024-09-22 00:05 | Emergency (ER) | payer MEDICAID, SELFPAY ==
[2024-09-22 00:08] VITALS: BMI 32.8
[2024-09-22 00:26] VITALS: BP 107/67; PULSE 90; RESP 18; TEMP 36.9; O2SAT 97
--- NOTE | 2024-09-22 00:33 | XR_ITS ---
Examination: Ribs, right, with PA chest, 5 views Technique: Chest PA, RIBS AP, RPO, LPO, AP coned lower ribs 5 views Exam date and time: September 22, 2024 1242 hours INDICATIONS: Patient fell today with injury to the right chest, right rib pain Findings: Normal heart size No pneumothorax No acute rib fractures IMPRESSION: No pneumothorax, pulmonary contusion or hemothorax No acute rib fractures
--- NOTE | 2024-09-22 00:35 | PD.EDFALL ---
ED Fall Injury RME/HPI General Stated Complaint: FALL R RIB PAIN Time Seen by Provider: 09/22/24 00:34 Arrival date/time: 09/22/24 00:05 23F with no significant PMH presents to ED with R rib pain after slip and fall. Patient denies hitting her head. Limitations: no limitations Related Data Home Medications ?Medication ?Instructions ?Recorded ?Confirmed vit no.95-ferrous 1 tab PO QDAY 03/11/24 03/11/24 fumarate 28 mg-folic acid 800 mcg tablet () Allergies Allergy/AdvReac Type Severity Reaction Status Date / Time No Known Allergies Allergy Verified 09/22/24 00:13 Review of Systems Review of Systems Systems Reviewed: All systems reviewed, normal except as documented Constitutional Constitutional: Reports system reviewed and no additional complaints, except as documented, Denies fever(s) and Denies headache(s) ENT Ears, Nose, Mouth, and Throat: Denies disequilibrium and Denies headache(s) Cardiovascular Cardiovascular: Reports system reviewed and no additional complaints, except as documented, Reports as per HPI, Reports chest pain (rib) and Denies dyspnea Respiratory Respiratory: Reports system reviewed and no additional complaints, except as documented, Denies cough and Denies dyspnea Gastrointestinal Gastrointestinal: Reports system reviewed and no additional complaints, except as documented, Denies abdominal pain, Denies nausea and Denies vomiting Neurologic Neurologic: Reports system reviewed and no additional complaints, except as documented, Denies confusion, Denies disequilibrium and Denies headache(s) Psychiatric Psychiatric: Denies confusion Past Medical History Past Medical History NEUROLOGIC: Negative Neurological Disorders CARDIAC: Negative Cardiac Disorders, Myocardial Infarction, Cardiac Arrhythmia, Atrial Fibrillation, Angina, Heart Murmur, Coronary Artery Disease, Atherosclerotic Heart Disease, Peripheral Vascular Disease, Hypercholesterolemia, Aneurysm, Congestive Heart Failure, Congenital Heart Disease, Valvular Heart Disease, Rheumatic Fever, Cardiomyopathy, Edema, Pericarditis, Cellulitis, Deep Vein Thrombosis, Hypertension, Hypotension or Varicose Veins RESPIRATORY: Negative Chronic Obstructive Pulmonary Disease (COPD) GASTROINTESTINAL: Negative Gastrointestinal Disorders GENITOURINARY: Negative Genitourinary Disorders, Renal Disease, Kidney Stones, Polycystic Kidney Disease, Neurogenic Bladder, Inguinal Hernia, Dialysis or Benign Prostatic Hyperplasia REPRODUCTIVE: Negative Endometriosis, Genital Herpes, Gonorrhea, Pelvic Inflammatory Disease, Previous Pregnancies, Syphilis or Uterine Prolapse MUSCULOSKELETAL: Negative Musculoskeletal Disorders, Muscular Dystrophy, Myasthenia Gravis, Marfan's Syndrome, Arthritis, Rheumatoid Arthritis, Osteoporosis, Degenerative Disk Disease, Gout, Scoliosis, Fibromyalgia, Fractures, Degenerative Joint Disease, Osteomyelitis or Poliovirus ENT: Negative Cataracts, Glaucoma, Blind, Retinal Detachment, Macular Degeneration, Ear Infection, Deafness or Eye Prosthesis ENDOCRINE: Negative Endocrine Disorders, Diabetes Mellitus Type 1, Diabetes Mellitus Type 2, Hypoglycemia, Mcdermitt's Syndrome, Jose L's Disease, Hyperthyroidism, Hypothyroidism, Parathyroid Disease, Pituitary Disease, Systemic Lupus Erythematosus, Syndrome of Inappropriate Antidiuretic Hormone (SIADH), Adrenal Disease or Graves' Disease HEMATOLOGIC: Negative Blood Disorders, Anemia, Leukemia, Hemophilia, Thalassemia, Sickle Cell Disease or Clotting Problems OTHER HISTORY: Negative Autoimmune Disease Family History FAMILY HISTORY: Negative Family Cardiac Disorders Surgical History SURGICAL: Negative Cardiac Surgery, Pacemaker, Endocrine Surgery, Thyroidectomy or Ear Surgery Social History SMOKING STATUS: Never smoker SECOND HAND EXPOSURE: Yes ED Exam General Limitations: Present no limitations General appearance: Present alert and in no apparent distress Head Head exam: Present atraumatic Eye Eye exam: Present normal appearance, PERRL and EOMI ENT ENT exam: Present normal exam, normal oropharynx and mucous membranes moist Neck Neck exam: Present normal inspection, full ROM and trachea midline Chest Chest inspection: Present symmetric chest wall rise and tenderness (R back/front rib) Respiratory Respiratory exam: Present normal lung sounds bilaterally Cardiovascular Cardiovascular exam: Present regular rate, normal rhythm and normal heart sounds Abdominal Exam Abdominal exam: Present soft and normal bowel sounds Extremities Exam Extremities exam: Present normal inspection and full ROM Back Exam Back exam: Present normal inspection and full ROM Neurological Exam Neurological exam: Present alert, oriented X3 and CN II-XII intact Psychiatric Psychiatric exam: Present normal affect and normal mood Skin Skin exam: Present warm, dry, intact and normal color Course Quality Measures none Orders Category Date Time Status XR ribs RT min 3V w CXR1V Stat Exams 09/22/24 00:33 Taken Vital Signs Vital signs: Vital Signs Temperature 98.4 F 09/22/24 00:26 Pulse Rate 90 09/22/24 00:26 Respiratory Rate 18 09/22/24 00:26 Blood Pressure 107/67 09/22/24 00:26 Pulse Oximetry (%) 97 09/22/24 00:26 Oxygen Delivery Method Room Air 09/22/24 00:26 O2 at 97% on RA and WNLs Fall MDM Narrative MDM Narrative:: 23F with no significant PMH presents to ED with R rib pain after slip and fall. Patient denies hitting her head. Physical exam reveals R back/front rib tenderness. Normal WOB. Gait normal. Speech normal. Patient is afebrile, calm, and alert. XR no fx. Patient data External records reviewed:: [facility] previous records Clinical information provided by:: patient Social determinants that could affect healthcare access:: none Patient has the following chronic illnesses:: none How is presenting disease/condition affected by chronic disease/condition?: no chronic disease Evaluation data The following diagnostics were reviewed and interpreted by me:: radiology exam(s) Lab and/or radiology exams considered but not ordered:: ordered Interpretation Summary: above Medications / Prescriptions Medications or Prescriptions considered but not ordered:: not ordered Medication administrations:: n/a Consultations Consultation(s) initiated? (list below): No Diagnosis Fall Differential Diagnosis: syncope, dislocation of shoulder region, fracture of wrist, compression fracture, concussion without loss of consciousness and other (soft tissue contusion, rib fracture/contusion) Most likely diagnosis given after review of the tests above:: rib contusion Admission Indicated Admission indicated?: not indicated Admission Request Was there a request for admission?: No Disposition Plan Disposition Plan: Discharge Discharge Attestation Discharge Attestation: The patient and all family members were given an opportunity to ask questions and understood the discharge instructions. Discharge instructions specifically effects, indications for sooner follow up or return to the emergency department, and the expected course of current diagnosis. Patient condition: Stable Discharge Plan Plan Patient Disposition: HOME (Self Care) Discharge Disposition comment: Stable Prescriptions/Referrals Prescriptions/Med Rec: No Action PNV cmb#95-ferrous fumarate-FA [] 28 mg iron- 800 mcg Tablet 1 tab PO QDAY Referrals: Ayaan Mejia MD [Primary Care Provider] - In 1 week Problem List Clinical Impression: Contusion of rib Patient/Caregiver Discharge Instructions Education Materials: ED Contusion, Rib Additional Instructions: Please follow-up with PCP within 24-48 hours and return immediately if symptoms worsen. Print Language: Wallisian Stand Alone Forms: Patient Portal Info Letter ALISON/ALISSA Supervising Physician ALISON/ALISSA Supervising Physician: Dr. Varghese
--- NOTE | 2024-09-22 01:57 | PRELIM_ITS ---
Radiographs of the right ribs and chest (5 views). September 22, 2024 at 0042 hours Clinical History: Fall Comparison: No prior study is available for comparison. Findings: The lungs are clear. There is no pleural effusion or pneumothorax. The cardiomediastinal silhouette is normal. There is no evidence of rib fracture. Impression: No evidence of rib fracture or pneumothorax. Report Electronically Signed By: Saravanan Moffett 09/22/2024 1:56:31 AM [EST]
[2024-09-22 02:15] VITALS: BP 110/74; PULSE 88; RESP 18; TEMP 36.7; O2SAT 99
== END 2024-09-22 02:17 | disposition home or self-care (01) ==
PROVIDERS: Emergency Provider Emergency Medicine; PCP Obstetrics & Gynecology
DX: S20.219A Contusion of unspecified front wall of thorax, initial encounter (principal); W01.0XXA Fall on same level from slipping, tripping and stumbling without subsequent striking against object, initial encounter
CPT/HCPCS: 71101; 99283

== ENCOUNTER 2024-10-24 11:48 | Emergency (ER) | payer MEDICAID, SELFPAY ==
[2024-10-24 12:25] VITALS: BP 112/70; PULSE 79; RESP 16; TEMP 36.8; O2SAT 97; BMI 32.8
--- NOTE | 2024-10-24 13:10 | PD.EDADULT ---
ED General RME/HPI General Chief complaint: General Adult/Misc Complain Stated complaint: Nosebleed left nare Time Seen by Provider: 10/24/24 11:55 Source: patient Arrival date/time: 10/24/24 11:48 This is a 24-year-old female presents to the emergency department with complaints of generalized headache and recurrent nosebleed of left nostril. She does have a history of nosebleeds. States today she noticed that she was unable to stop the bleeding. She does have allergies and history of sinusitis. Denies any other concerns today. Upon arrival today she has no bleeding noted. Mode of arrival: ambulatory Related Data Home Medications ?Medication ?Instructions ?Recorded ?Confirmed vit no.95-ferrous 1 tab PO QDAY 03/11/24 03/11/24 fumarate 28 mg-folic acid 800 mcg tablet () Previous Rx's ?Medication ?Instructions ?Recorded acetaminophen 325 mg tablet 650 mg (2 x 325 mg) PO Q6H PRN 10/24/24 (Tylenol) fever or pain #30 tabs amoxicillin 875 mg-potassium 1 tab PO BID #14 tabs 10/24/24 clavulanate 125 mg tablet cetirizine 10 mg tablet 10 mg PO QDAY PRN allergy symptoms 10/24/24 #30 tabs Allergies Allergy/AdvReac Type Severity Reaction Status Date / Time No Known Allergies Allergy Verified 10/24/24 11:53 Review of Systems Review of Systems Systems Reviewed: All systems reviewed, normal except as documented Narrative Review of Systems: Gen: No fever, no chills, no weight loss EYES: No discharge, no visual changes, no pain HEENT: No ear pain, no congestion, no sore throat PULM: No shortness of breath, no cough, no congestion CV: No chest pain, no dyspnea on exertion, no palpitations GI: No nausea, no vomiting, no diarrhea, no pain, no constipation : No frequency, no urgency,? no dysuria Musc/skel: No joint pain, no back pain Skin: No rash? Psyc: No hallucinations, no depression Heme/Lymph: No easy bleeding or bruising tendencies Neuro: No weakness, no headache ED Exam Narrative Physical exam: General: Sittiing in Exam table in no acute distress, answering questions appropriately HENT: normocephalic, atraumatic, EOMI, PERRLA, moist mucous membranes Chest: chest wall is nontender Cardiac: regular rate and rhythm, normal S1 and S2, no murmurs, rubs, or gallops, capillary refill ?2 seconds Pulmonary: clear to auscultation bilaterally, no wheezing, crackles, or rhonchi Abdominal: active bowel sounds, soft, nontender, nondistended Neuro: A&OX3, CN II-XII intact, sensation grossly intact bilaterally in UE and LE. Skin: no rashes, no ecchymosis Ext: no lower extremity edema Course Quality Measures none Vital Signs Vital signs: Vital Signs Temperature 98.3 F 10/24/24 12:25 Pulse Rate 79 10/24/24 12:25 Respiratory Rate 16 10/24/24 12:25 Blood Pressure 112/70 10/24/24 12:25 Pulse Oximetry (%) 97 10/24/24 12:25 Oxygen Delivery Method Room Air 10/24/24 12:25 Discharge Plan Plan Patient Disposition: HOME (Self Care) Patient condition on transfer: Stable Prescriptions/Referrals Prescriptions/Med Rec: New amoxicillin-pot clavulanate 875-125 mg tablet 1 tab PO BID Qty: 14 0RF cetirizine 10 mg tablet 10 mg PO QDAY PRN (Reason: allergy symptoms) Qty: 30 0RF acetaminophen [Tylenol] 325 mg tablet 650 mg PO Q6H PRN (Reason: fever or pain) Qty: 30 0RF No Action PNV cmb#95-ferrous fumarate-FA [] 28 mg iron- 800 mcg Tablet 1 tab PO QDAY Problem List Clinical Impression: Sinusitis, Epistaxis, recurrent Patient/Caregiver Discharge Instructions Discharge Activity: activity as tolerated Education Materials: ED Sinusitis (Antibiotic Treatment) Additional Instructions: Por favor, consulte con loaiza m?dico de cabecera. Le recetaron Tylenol para el dolor de jeyson y la cefalea. Inicie antibi?ticos para la sinusitis. Eleve la jeyson hacia adelante. La presi?n directa, aplicada apretando suavemente las fosas nasales lima 5 a 15 minutos, suele ser suficiente para detener la mayor?a de las hemorragias nasales. Viv hidrataci?n intensa, que incluye un espray nasal de soluci?n salina, emolientes saadia vaselina aplicada con un hisopo, y aire humidificado, es importante para la prevenci?n. Please follow-up with your primary doctor. Tylenol was sent for pain medication and headache Please start antibiotics for sinusitis Elevate the head forward. Direct pressure, applied by gently squeezing the nostrils for 5 to 15 minutes, is usually sufficient to stop most nosebleeds. Aggressive moisturization including nasal saline spray, emollients such as Vaseline applied with a Q-tip, and humidified air are important for prevention. Print Language: Bahamian Stand Alone Forms: [place] Award Info., Patient Portal Info Letter PA/MARINE PIPEFITTER Supervising Physician ALISON/ALISSA Supervising Physician: Dr Hansen [facility] Narrative MDM hospital course: 24-year-old female history of allergies, sinusitis and nosebleed. No acute distress and alteration and vitals today. Has not taken any medications or outpatient basis because she is . Advise I will order medications device aggressive multiagent 2 bilateral nostrils. Advised to follow up with PCP Return to the emergency department Clinical Information Provided by patient Medical Records Reviewed [facility] Meds/Rx Considered, not Ordered None Labs/Rad/Tests considered, not Ordered None Chronic Illness/Social Conditions which may negatively complicate care or outcome(s)-explain: None or not applicable EKG EKG not done Lab Interpretation Labs: none Imaging Imaging interpretation: none Medication Administration(s) none Diagnosis Differential diagnosis: Sinusitis, petite, and protected, allergies, seasonal allergies Differential dx and/or dx ruled out: Seasonal allergies, sinusitis Dispositon Disposition: Discharge Home
== END 2024-10-24 13:18 | disposition home or self-care (01) ==
LOC: SERX 13:26
PROVIDERS: Emergency Provider Emergency Medicine; PCP Nurse Practitioner Women's Health
DX: J32.9 Chronic sinusitis, unspecified (principal); R04.0 Epistaxis
CPT/HCPCS: 99283

== ENCOUNTER 2024-11-30 00:36 | Emergency (ER) | payer MEDICAID, SELFPAY ==
[2024-11-30 01:04] VITALS: BP 104/63; PULSE 98; RESP 18; TEMP 36.8; O2SAT 97
--- NOTE | 2024-11-30 01:24 | XR_ITS ---
Examination: Transvaginal ultrasound of the pelvis, complete Technique: Transvaginal sonographic images pelvis performed using gonsales scale imaging Exam date and time: November 30, 2024, 0145 hours INDICATIONS: Onset left lower pelvic pain beginning 3 hours ago FINDINGS: Uterus 6.9 cm endometrial stripe 0.6 cm No uterine mass or intrauterine gestation Right ovary 2.3 cm arterial flow. Left ovary is obscured by bowel gas IMPRESSION: No uterine mass or intrauterine gestation.
--- NOTE | 2024-11-30 01:24 | XR_ITS ---
Examination: Retroperitoneal ultrasound, complete Technique: Multiple high resolution grayscale images of the retroperitoneum obtained, including kidneys and bladder. Exam date and time:November 30, 2024, 0135 hours INDICATIONS: Flank pain and left lower abdomen pain beginning 3 hours ago FINDINGS: Right kidney 8.8 cm renal cortex 1.6 cm Left kidney 13.1 cm renal cortex 2.1 cm No hydronephrosis or renal calculi Contracted urinary bladder IMPRESSION: Small right kidney No hydronephrosis or renal calculi
--- NOTE | 2024-11-30 01:25 | PD.EDRME ---
Rapid Medical Screening Exam RME Arrival date/time: 11/30/24 00:36 24F with history of appendectomy presents to ED with 1 week of worsening LLQ/pelvic pain that radiates to back. Patient denies dysuria and vaginal bleeding/discharge. Patient states it's painful to lift her LLE. Chief Complaint: Abdominal Pain Vital signs: Vital Signs Temperature 98.3 F 11/30/24 01:04 Pulse Rate 98 11/30/24 01:04 Respiratory Rate 18 11/30/24 01:04 Blood Pressure 104/63 11/30/24 01:04 Pulse Oximetry (%) 97 11/30/24 01:04 Oxygen Delivery Method Room Air 11/30/24 01:04
[2024-11-30 02:38] LABS: Collection Type, Urine Clean Catch
--- NOTE | 2024-11-30 02:45 | PRELIM_ITS ---
Renal/Retroperitoneal ultrasound. November 30, 2024 0134 hours Clinical history: r/o stone Technique: Duplex scan of the bilateral renal arterial and venous tree was performed utilizing 2D grayscale imaging, Doppler spectral analysis and color flow. Comparison: No prior study is available for comparison. Findings: Right: The right kidney measures 8.8 x 5.1 x 7 cm.There is no hydronephrosis or renal calculus. The corticomedullary differentiation is maintained. Left: The left kidney measures 13 x 6.4 x 6.8 cm. There is mild parenchymal scarring. There is no hydronephrosis or renal calculus. The corticomedullary differentiation is maintained. The urinary bladder is incompletely distended at the time of the examination. The prevoid volume = 37.81. The patient is unable to void. Ureteric jets are not seen Impression: No obstructing calculus or hydronephrosis. Relatively small sized right kidney with mild left renal parenchymal scarring. Report Electronically Signed By: Johan Alarcon 11/30/2024 2:44:51 AM [EST]
--- NOTE | 2024-11-30 02:45 | PRELIM_ITS ---
Pelvic ultrasound (transvaginal). November 30, 2024 0145 hours Clinical history: Pelvic pain Technique: Real-time, grayscale, transvaginal pelvic ultrasound was performed using Duplex scanning including arterial inflow, venous outflow, color and spectral Doppler. Comparison: No prior study is available for comparison. Findings: The uterus is retroverted and normal in size measuring 6.9 x 3.5 x 4.7 cm. The endometrium is unremarkable and measures 0.6 cm. No intrauterine detected. The right ovary measures 2.3 x 1.1 x 1.7 cm and is unremarkable. The right ovary demonstrate color flow and spectral waveforms on Doppler evaluation. The left ovary is obscured by gas. There is no adnexal mass. There is no free fluid on the submitted images. Impression: No sonographic evidence of right ovarian torsion is demonstrated on the submitted images. There left ovary is not visualized. Report Electronically Signed By: Johan Alarcon 11/30/2024 2:44:48 AM [EST]
[2024-11-30 02:46] LABS: Basophils # (Auto) 0.1 Thou/mm3 (0.0-0.2); Basophils % (Auto) 1 % (0-2.5); Eosinophils # (Auto) 0.5 Thou/mm3 (0.0-0.5); Eosinophils % (Auto) 4 % (0-10); Hematocrit 39.8 % (36.0-46.0); Hemoglobin 13.0 g/dL (12.0-16.0); Immature Granulocytes Auto 0.05 Thou/mm3 (0.00-0.00); Lymphocytes # (Auto) 5.0 Thou/mm3 (1.0-4.8); Lymphocytes % (Auto) 36 % (10-50); Mean Corpuscular HGB Conc 32.7 g/dl (31.0-37.0); Mean Corpuscular Hemoglobin 26.0 pg (25.0-35.0); Mean Corpuscular Volume 80 fL (80-100); Monocytes # (Auto) 1.0 Thou/mm3 (0.0-0.8); Monocytes % (Auto) 7 % (0-12); Neutrophils # (Auto) 7.4 Thou/mm3 (1.8-7.7); Neutrophils % (Auto) 53 % (37-80); Nucleated Red Blood Cell # 0.00 Thou/mm3 (0.00-0.00); Nucleated Red Blood Cell % 0 /100 WBC (0); Platelet Count 264 Thou/mm3 (140-440); RDW Standard Deviation 44.9 fL (36.4-46.3); Red Blood Count 5.00 Miln/mm3 (4.00-5.20); White Blood Count 14.0 Thou/mm3 (3.6-11.0)
--- NOTE | 2024-11-30 02:46 | PD.EDABDPN ---
ED Abdominal Pain RME/HPI General Chief Complaint: Abdominal Pain Stated complaint: LLQ ABD PAIN Arrival date/time: 11/30/24 00:36 RME / HPI RME / HPI narrative: 11/30/24 00:36 24F with history of appendectomy presents to ED with 1 week of worsening LLQ/pelvic pain that radiates to back. Patient denies dysuria and vaginal bleeding/discharge. Patient states it's painful to lift her LLE. DR. ACUÑA MAIN ED EVALUATION: 24 y/o female with Hx of Fatty Liver and Hypercholesterolemia presents to ED c/o LLQ abdominal pain x 7 hours. Denies vomiting. Denies possibility of . Also denies allergies to medications. No other concerns or complaints expressed at this time. Related Data LMP (females 10-50): unknown Home Medications ?Medication ?Instructions ?Recorded ?Confirmed vit no.95-ferrous 1 tab PO QDAY 03/11/24 03/11/24 fumarate 28 mg-folic acid 800 mcg tablet () Previous Rx's ?Medication ?Instructions ?Recorded acetaminophen 325 mg tablet 650 mg (2 x 325 mg) PO Q6H PRN 10/24/24 (Tylenol) fever or pain #30 tabs amoxicillin 875 mg-potassium 1 tab PO BID #14 tabs 10/24/24 clavulanate 125 mg tablet cetirizine 10 mg tablet 10 mg PO QDAY PRN allergy symptoms 10/24/24 #30 tabs Allergies Allergy/AdvReac Type Severity Reaction Status Date / Time No Known Allergies Allergy Verified 10/24/24 11:53 Review of Systems Review of Systems Systems Reviewed: All systems reviewed, normal except as documented Past Medical History Past Medical History CARDIAC: Positive Hypercholesterolemia Surgical History SURGICAL: Positive Section Social History SECOND HAND EXPOSURE: Yes ED Exam Narrative Physical exam: Generally patient is alert and in no obvious distress, heart regular rate and rhythm, lungs clear to auscultation equal bilaterally, abdomen soft bowel sounds present nondistended left lower quadrant versus adnexal tenderness without rebound. Musculoskeletal exam shows no costovertebral angle tenderness. Course Quality Measures none Orders Category Date Time Status US retroperitoneal comp Stat Exams 11/30/24 01:24 Taken US transvaginal Stat Exams 11/30/24 01:24 Taken CBC Stat Lab 11/30/24 02:37 Completed CMP [Comprehensive Metabolic Panel] Stat Lab 11/30/24 02:37 Completed HCG Qualitative,Urine Stat Lab 11/30/24 02:32 Completed Urinalysis, C/S if Indicated Stat Lab 11/30/24 02:32 Completed Morphine Inj Med 11/30/24 03:12 Discontinued 5 mg IM X1 ONE Vital Signs Vital signs: Vital Signs Temperature 98.3 F 11/30/24 01:04 Pulse Rate 98 11/30/24 01:04 Respiratory Rate 18 11/30/24 01:04 Blood Pressure 104/63 11/30/24 01:04 Pulse Oximetry (%) 97 11/30/24 01:04 Oxygen Delivery Method Room Air 11/30/24 01:04 Abdominal Pain MDM MDM Narrative MDM Narrative:: Scribe Attestation: I, Anny Krishnamurthy, am scribing for and in the presence of Dr. Acuña. Provider Notation: Although this document has been carefully reviewed, there may still be some phonetic and other typographical errors.? These errors are purely grammatical due to imperfections in the software program and should not be construed in any way to? compromise the substance of the patient's medical care during this visit. I interpreted all labs. LFTs are only mildly elevated and very similar to where they have been in the past. White count is 14,000. On clinical exam the patient appears to have more pelvic pain than left lower quadrant abdominal pain. At this time I doubt diverticulitis. is negative. Pelvic ultrasound showed no evidence of torsion or cysts. Retroperitoneal ultrasound showed no hydronephrosis. All these studies were protocoled by Shoshana. Patient received morphine 5 mg IM. She will be discharged in stable condition. She may take [id number] Tylenol and/or ibuprofen as needed for pain. Follow-up with her doctor. Return to ER as needed or if condition worsens. Patient data External records reviewed:: [facility] previous records (Reviewed prior ED records from 10/24/24. Patient was seen for Epistaxis, recurrent.) Clinical information provided by:: patient Social determinants that could affect healthcare access:: none Patient has the following chronic illnesses:: None How is presenting disease/condition affected by chronic disease/condition?: exacerbated by Evaluation data The following diagnostics were reviewed and interpreted by me:: lab results and radiology exam(s) Lab and/or radiology exams considered but not ordered:: None Interpretation Summary: RADIOLOGY Transvaginal US: Findings: The uterus is retroverted and normal in size measuring 6.9 x 3.5 x 4.7 cm. The endometrium is unremarkable and measures 0.6 cm. No intrauterine detected. The right ovary measures 2.3 x 1.1 x 1.7 cm and is unremarkable. The right ovary demonstrate color flow and spectral waveforms on Doppler evaluation. The left ovary is obscured by gas. There is no adnexal mass. There is no free fluid on the submitted images. Impression: No sonographic evidence of right ovarian torsion is demonstrated on the submitted images. There left ovary is not visualized. Retroperitoneum US: Findings: Right: The right kidney measures 8.8 x 5.1 x 7 cm.There is no hydronephrosis or renal calculus. The corticomedullary differentiation is maintained. Left: The left kidney measures 13 x 6.4 x 6.8 cm. There is mild parenchymal scarring. There is no hydronephrosis or renal calculus. The corticomedullary differentiation is maintained. The urinary bladder is incompletely distended at the time of the examination. The prevoid volume = 37.81. The patient is unable to void. Ureteric jets are not seen Impression: No obstructing calculus or hydronephrosis. Relatively small sized right kidney with mild left renal parenchymal scarring. Medications / Prescriptions Medications or Prescriptions considered but not ordered:: None Medication administrations:: Medication Administration History Discontinued Medications Morphine Sulfate (Morphine Sulf Inj 10 Mg/Ml Vial) 5 mg IM X1 ONE Stop: 11/30/24 03:13 See above Consultations Consultation(s) initiated? (list below): No Diagnosis Differential diagnosis abdominal pain: abdominal pain, acute appendicitis, calculus of kidney, constipation, diverticulitis, endometriosis, gastroenteritis and small bowel obstruction Most likely diagnosis given after review of the tests above:: None Admission Indicated Admission indicated?: not indicated Explain why admission is indicated or not indicated:: Patient does not meet admission criteria. Admission Request Was there a request for admission?: No Disposition Plan Disposition Plan: Discharge Discharge Attestation Discharge Attestation: The patient and all family members were given an opportunity to ask questions and understood the discharge instructions. Discharge instructions specifically effects, indications for sooner follow up or return to the emergency department, and the expected course of current diagnosis. Patient condition: Stable Discharge Plan Plan Patient Disposition: HOME (Self Care) Prescriptions/Referrals Prescriptions/Med Rec: No Action PNV no.95-ferrous fumarate-FA [] 28 mg iron- 800 mcg Tablet 1 tab PO QDAY amoxicillin-pot clavulanate 875-125 mg tablet 1 tab PO BID Qty: 14 0RF cetirizine 10 mg tablet 10 mg PO QDAY PRN (Reason: allergy symptoms) Qty: 30 0RF acetaminophen [Tylenol] 325 mg tablet 650 mg PO Q6H PRN (Reason: fever or pain) Qty: 30 0RF Referrals: Ayaan Mejia MD [Primary Care Provider] - In 1 week Problem List Clinical Impression: Abdominal pain Patient/Caregiver Discharge Instructions Education Materials: Abdominal Pain Additional Instructions: You may use [id number] Tylenol and ibuprofen for pain. Follow-up with your doctor. Return to ER as needed or if condition worsens. Print Language: Swedish Stand Alone Forms: [place] Award Info., Patient Portal Info Letter
[2024-11-30 02:49] LABS: Bilirubin,Urine Negative (Negative); Blood,Urine Negative (Negative); Clarity,Urine Clear (Clear/Hazy); Color,Urine Lt-Yellow (Lt Yel-Yel); Culture Indicated,Urine Not Indicated; Glucose, Urine Negative (Negative); Ketones,Urine Negative (Negative); Leukocyte Esterase,Urine Negative (Negative); Nitrite,Urine Negative (Negative); PH,Urine 6.0 (5.0-7.0); Protein,Urine Negative (Neg - Trace); RBC,Urine 1 /hpf (0-3); Specific Gravity,Urine 1.031 (1.001-1.035); Squamous Epithelial Cell,Urine 1 /hpf (0-5); Urobilinogen,Urine Negative mg/dL (0.0-1.0); WBC,Urine 1 /hpf (0-5)
[2024-11-30 03:01] LABS: HCG Qualitative,Urine Negative
[2024-11-30 03:10] LABS: Alanine Aminotransferase 93 U/L (10-49); Albumin, Serum 5.0 gm/dL (3.5-5.0); Albumin/Globulin Ratio 1.9 (1.2-2.2); Alkaline Phosphatase 179 U/L (46-116); Anion Gap 11 (7-16); Aspartate Amino Transferase 59 U/L (0-34); BUN/Creatinine Ratio 17 Ratio (12-20); Bilirubin,Total 0.2 mg/dL (0.3-1.2); Blood Urea Nitrogen 12 mg/dL (9-23); Calcium 10.0 mg/dL (8.3-10.6); Calcium (Corrected) 10.0 mg/dL (8.5-10.1); Carbon Dioxide 24.8 mMol/L (20.0-31.0); Chloride 107 mMol/L (98-107); Creatinine (Component) 0.7 mg/dL (0.6-1.3); Globulin 2.7 gm/dL (2.3-3.5); Glucose 70 mg/dL (74-106); Osmolality,Calculated 282 (275-295); Potassium 3.4 mMol/L (3.4-5.1); Sodium 143 mMol/L (136-145); Total Protein 7.7 gm/dL (5.7-8.2); eGFR > 60 See Note
[2024-11-30] MEDS: MORPHINE SULF INJ 10 MG/ML VIAL 5 MG IM (03:24)
[2024-11-30 03:26] VITALS: BP 112/71; PULSE 69; RESP 18; TEMP 36.9; O2SAT 96
== END 2024-11-30 03:28 | disposition home or self-care (01) ==
PROVIDERS: Physician Assistant; Emergency Provider Emergency Medicine; PCP Obstetrics & Gynecology
DX: R10.32 Left lower quadrant pain (principal); E78.00 Pure hypercholesterolemia, unspecified; Z90.49 Acquired absence of other specified parts of digestive tract
CPT/HCPCS: 36415; 76770; 76830; 80053; 81001; 81025; 85025; 96372; 99283; J2270